=== PATIENT | male | born 1995 | race Hispanic/Latino ===

== ENCOUNTER 2018-08-06 12:03 | Emergency (ER) | payer BC ==
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
--- NOTE | 2018-08-06 14:26 | RAD REPORT ---
EXAM DESCRIPTION: RAD - Hand Right 3 View - 08/06/2018 2:08 pm CLINICAL HISTORY: Pain;Smash injury;Swelling COMPARISON: No comparisons FINDINGS: Linear lucency is seen in the shaft of the first metacarpal, most compatible with nondispl aced fracture. No dislocation evident.
== END 2018-08-06 14:45 | disposition home or self-care (01) ==
LOC: ER 12:03
DX: S62.340A Nondisplaced fracture of base of second metacarpal bone, right hand, initial encounter for closed fracture (principal); W51.XXXA Accidental striking against or bumped into by another person, initial encounter; Y93.9 Activity, unspecified; Y92.89 Other specified places as the place of occurrence of the external cause
CPT/HCPCS: 99284